=== PATIENT | male | born 1980 | race Caucasian/White ===

== ENCOUNTER 2018-01-13 01:16 | Emergency (ER) | payer OTHER ==
[2018-01-13 01:27] VITALS: BP 158/107; PULSE 82; RESP 20; TEMP 97.6
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
== END 2018-01-13 02:07 | disposition home or self-care (01) ==
LOC: EC 01:16
DX: F41.0 Panic disorder [episodic paroxysmal anxiety] (principal); F17.200 Nicotine dependence, unspecified, uncomplicated; Z79.899 Other long term (current) drug therapy
CPT/HCPCS: 99283

== ENCOUNTER 2018-05-25 19:06 | Emergency (ER) | payer OTHER ==
[2018-05-25 20:10] VITALS: TEMP 98.2
[2018-05-25] MEDS ORDERED: ONDANSETRON 4 MG/2 ML VIAL IVP STA (21:38)
[2018-05-25 21:45] VITALS: PULSE 109; RESP 16
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
[2018-05-25 22:07] VITALS: BP 210/131
== END 2018-05-25 22:37 | disposition left against medical advice (07) ==
LOC: EC 19:06
DX: R11.2 Nausea with vomiting, unspecified (principal); I10 Essential (primary) hypertension; Z87.891 Personal history of nicotine dependence
CPT/HCPCS: 99283